=== PATIENT | male | born 1995 | race Caucasian/White ===

== ENCOUNTER 2017-07-04 14:34 | Emergency (ER) | payer OTHER ==
[2017-07-04 15:11] LABS: BASOPHILS % (AUTO) 0 % (0-3); EOSINOPHILS % (AUTO) 0 % (0-9); HEMATOCRIT 43 % (39-53); MEAN CORPUSCULAR HGB CONC 35.6 gm/dl (32.0-36.0); MEAN CORPUSCULAR VOLUME 89 fL (80-100); NEUTROPHILS % (AUTO) 85.6 % (37-80)
[2017-07-04 15:38] VITALS: BP 123/78; PULSE 124; RESP 32; TEMP 101.9; O2SAT 95
== END 2017-07-04 16:08 | disposition home or self-care (01) ==
LOC: ED 14:34
DX: J18.1 Lobar pneumonia, unspecified organism (principal)
CPT/HCPCS: 36415; 71020; 85025; 87804; 99282

== ENCOUNTER 2018-02-23 18:02 | Emergency (ER) | payer OTHER ==
[2018-02-23 18:22] VITALS: BP 122/77; PULSE 81; RESP 20; TEMP 97.4; O2SAT 98
== END 2018-02-23 18:33 | disposition home or self-care (01) ==
LOC: ED 18:02
DX: J20.9 Acute bronchitis, unspecified (principal); R04.0 Epistaxis; R06.02 Shortness of breath
CPT/HCPCS: 99282